=== PATIENT | male | born 1975 | race Caucasian/White ===

== ENCOUNTER 2024-11-04 14:57 | Emergency (ER) | payer BC, SELFPAY ==
[2024-11-04 14:58] VITALS: BMI 29.1
[2024-11-04 15:12] VITALS: BP 154/96; PULSE 89; RESP 18; TEMP 36.8; O2SAT 96
--- NOTE | 2024-11-04 15:20 | EDNOTE_ITS ---
<Statement entered by Fina Yoon MD - 11/05/24 14:27> As co-signing physician, I was present and available for consult prn. I concur with the plan and care as documented by the midlevel provider. ED Wound/Laceration-RME/HPI General Chief Complaint: Wound/Laceration Stated Complaint: WANTS TETANUS SHOT Time Seen by Provider: 11/04/24 14:59 Arrival date/time: 11/04/24 14:57 49-year-old male presents emergency department for complaint of laceration right hand fourth digit on the palmar aspect Limitations: no limitations Related Data Previous Rx's ?Medication ?Instructions ?Recorded cephalexin 500 mg capsule 500 mg PO BID 7 days #14 cap s 11/04/24 ibuprofen 800 mg tablet 800 mg PO TID PRN pain #30 t abs 11/04/24 Allergies Allergy/AdvReac Type Severity Reaction Status Date / Time NKA* Allergy Uncoded 02/14/13 07:34 Review of Systems Review of Systems Systems Reviewed: All systems reviewed, normal except as documented Constitutional Constitutional: Reports system reviewed and no additional complaints, except as documented, Denies fever(s) and Denies headache(s) Eyes Eyes: Reports system reviewed and no additional complaints, except as documented and Denies blurry vision ENT Ears, Nose, Mouth, and Throat: Reports system reviewed and no additional complaints, except as documented, Denies headache(s), Denies nasal congestion and Denies nasal discharge Cardiovascular Cardiovascular: Reports system reviewed and no additional complaints, except as documented, Denies chest pain and Denies dyspnea Respiratory Respiratory: Reports system reviewed and no additional complaints, except as documented, Denies chest congestion, Denies cough and Denies dyspnea Gastrointestinal Gastrointestinal: Reports system reviewed and no additional complaints, except as documented and Denies abdominal pain Integumentary/Breasts Skin/Breast: Reports system reviewed and no additional complaints, except as documented, Denies rash and Reports wounds (Laceration right hand fourth digit) Neurologic Neurologic: Reports system reviewed and no additional complaints, except as documented, Reports as per HPI and Denies headache(s) Past Medical History Social History SMOKING STATUS: Current some day smoker ED Exam General Limitations: Present no limitations General appearance: Present alert and in no apparent distress Head Head exam: Present atraumatic Eye Eye exam: Present normal appearance, PERRL and EOMI ENT ENT exam: Present normal exam, normal oropharynx and mucous membranes moist Neck Neck exam: Present normal inspection, full ROM and trachea midline Chest Chest inspection: Present normal inspection and symmetric chest wall rise Respiratory Respiratory exam: Present normal lung sounds bilaterally Cardiovascular Cardiovascular exam: Present regular rate, normal rhythm and normal heart sounds Abdominal Exam Abdominal exam: Present soft and normal bowel sounds Extremities Exam Extremities exam: Present normal inspection and full ROM Back Exam Back exam: Present normal inspection and full ROM Neurological Exam Neurological exam: Present alert, oriented X3, CN II-XII intact, normal gait and reflexes normal; Absent motor sensory deficit Psychiatric Psychiatric exam: Present normal affect and normal mood Skin Skin exam: Present warm, dry, normal color and other (Laceration right hand fourth digit) Course Quality Measures none Orders Category Date Time Status TET,DIP/PERT AC (Adult)-Tdap [Boostrix Adult (Tdap) Med 11/04/24 15:16 Discontinued Vacc] 0.5 ml IMI .ONCE ONE Vital Signs Vital signs: Vital Signs Temperature 98.3 F 11/04/24 15:12 Pulse Rate 89 11/04/24 15:12 Respiratory Rate 18 11/04/24 15:12 Blood Pressure 154/96 H 11/04/24 15:12 Pulse Oximetry (%) 96 11/04/24 15:12 Oxygen Delivery Method Room Air 11/04/24 15:12 O2 saturation 96% on room air within normal limits Procedures -ED Laceration Laceration 1: Site: hand Side (If applicable): right Size (cm): 3 Description: irregular Depth: simple, single layer Local Anesthetic: lidocaine 1% Amount of anesthesia used (mL): 5 Pre-repair: irrigated extensively Skin layer closed with: nylon Size (cm): 5-0 Number of sutures: 5 Technique: simple, interrupted Wound / Laceration MDM Narrative MDM Narrative:: 49-year-old male presents emergency department for complaint of laceration right hand fourth digit on the palmar aspect Patient reports he cut his finger on a fannie fence wound irrigated copiously laceration repaired with 5 sutures wound is well-approximated with no active bleeding at time of discharge no evidence of tendon ligamentous injury Tetanus updated per patient request Patient discharged home in no distress to follow-up with primary care doctor in the next 24 to 48 hours and for any worsening symptoms to return to the ER immediately Patient instructed to have sutures moved in 10 days Patient data External records reviewed:: [facility] previous records Clinical information provided by:: patient Social determinants that could affect healthcare access:: none Patient has the following chronic illnesses:: None How is presenting disease/condition affected by chronic disease/condition?: no chronic disease Evaluation data The following diagnostics were reviewed and interpreted by me:: radiology exam(s) Lab and/or radiology exams considered but not ordered:: Radiology obtain Interpretation Summary: Reviewed by me Medications / Prescriptions Medications or Prescriptions considered but not ordered:: Given Medication administrations:: Medication Administration History Discontinued Medications Diphtheria/Tetanus/Acell Pertussis (Diphth,Pertuss(Acell),Tet Vac 0.5 Ml Syr- Adult) 0.5 ml IMi .ONCE ONE Stop: 11/04/24 15:17 Last Admin: 11/04/24 15:45 Dose: 0.5 ml Documented By: Given Consultations Consultation(s) initiated? (list below): No Diagnosis Wound Differential Diagnosis: laceration Most likely diagnosis given after review of the tests above:: Laceration Admission Indicated Admission indicated?: not indicated Admission Request Was there a request for admission?: No Disposition Plan Disposition Plan: Discharge Discharge Attestation Discharge Attestation: The patient and all family members were given an opportunity to ask questions and understood the discharge instructions. Discharge instructions specifically effects, indications for sooner follow up or return to the emergency department, and the expected course of current diagnosis. Patient condition: Stable Discharge Plan Plan Patient Disposition: HOME (Self Care) Disposition Comment: Stable Prescriptions/Referrals Prescriptions/Med Rec: New ibuprofen 800 mg tablet 800 mg PO TID PRN (Reason: pain) Qty: 30 0RF cephalexin 500 mg capsule 500 mg PO BID 7 Days Qty: 14 0RF Problem List Clinical Impression: Laceration of finger of right hand Patient/Caregiver Discharge Instructions Education Materials: ED Scar Tips to Minimize Additional Instructions: Please follow up with your primary care doctor in the next 24-48hrs for any worsening symptoms return here immediately Print Language: Nigerien Stand Alone Forms: Louise Award Info., Patient Portal Info Letter Vaccines Vaccines Given During Stay: TDaP PA/DOCTOR OF NATUROPATHIC MEDICINE Supervising Physician PA/DOCTOR OF NATUROPATHIC MEDICINE Supervising Physician: Dr. Yoon
[2024-11-04] MEDS: DIPHTH,PERTUSS(ACELL),TET VAC 0.5 ML SYR- ADULT IMi (15:45)
== END 2024-11-04 15:40 | disposition home or self-care (01) ==
LOC: SERX 16:00
PROVIDERS: Emergency Provider Emergency Medicine
DX: S61.214A Laceration without foreign body of right ring finger without damage to nail, initial encounter (principal); W45.8XXA Other foreign body or object entering through skin, initial encounter; Z23 Encounter for immunization
CPT/HCPCS: 12002; 90471; 90715; 99283

== ENCOUNTER 2025-06-28 21:08 | Observation (INO) | payer BC, SELFPAY ==
[2025-06-28] VITALS (7 sets, daily range): BP systolic 141–171; BP diastolic 99–137; PULSE 102–120; RESP 13–22; TEMP 37.1–38.2; O2SAT 92–97; BMI 29.5
--- NOTE | 2025-06-28 21:11 | EKG_ITS ---
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
--- NOTE | 2025-06-28 21:44 | PD.EDRME ---
Rapid Medical Screening Exam RME Arrival date/time: 06/28/25 21:08 50M with history of asthma presents to ED with several days of cough, fevers/chills, and SOB. Patient went to clinic and was given some prednisone, amoxicillin (without any testing), and some inhalers. Chief Complaint: Shortness of Breath/Dyspnea Time Seen by Provider: 06/28/25 21:46 Vital signs: Vital Signs Temperature 99 F 06/28/25 21:31 Pulse Rate 120 H 06/28/25 21:31 Respiratory Rate 22 H 06/28/25 21:31 Blood Pressure 143/99 H 06/28/25 21:31 Pulse Oximetry (%) 92 L 06/28/25 21:31 Oxygen Delivery Method Room Air 06/28/25 21:31 Exam: Some wheezing in lungs. Clinical Impression: asthma exacerbation vs URI vs CAP vs pleural effusion vs CHF vs PE
--- NOTE | 2025-06-28 21:47 | XR_ITS ---
EXAMINATION: PA chest single view TECHNIQUE: Upright PA chest single view Date and time: June 28, 2025, 2144 hours INDICATIONS: Coughing fever chills this week FINDINGS: Normal heart size Lungs are clear. Osseous structures are intact IMPRESSION: No active disease
[2025-06-28 22:05] LABS: Lactate (Lactic Acid) 3.8 mMol/L (0.4-2.0)
[2025-06-28 22:08] LABS: Basophils # (Auto) 0.1 Thou/mm3 (0.0-0.2); Basophils % (Auto) 1 % (0-2.5); Eosinophils # (Auto) 0.2 Thou/mm3 (0.0-0.5); Eosinophils % (Auto) 1 % (0-10); Hematocrit 43.8 % (41.0-53.0); Hemoglobin 15.5 g/dL (13.5-16.0); Immature Granulocytes Auto 0.05 Thou/mm3 (0.00-0.00); Lymphocytes # (Auto) 0.9 Thou/mm3 (1.0-4.8); Lymphocytes % (Auto) 7 % (10-50); Mean Corpuscular HGB Conc 35.4 g/dl (31.0-37.0); Mean Corpuscular Hemoglobin 29.4 pg (25.0-35.0); Mean Corpuscular Volume 83 fL (80-100); Monocytes # (Auto) 0.6 Thou/mm3 (0.0-0.8); Monocytes % (Auto) 4 % (0-12); Neutrophils # (Auto) 11.8 Thou/mm3 (1.8-7.7); Neutrophils % (Auto) 87 % (37-80); Nucleated Red Blood Cell # 0.00 Thou/mm3 (0.00-0.00); Nucleated Red Blood Cell % 0 /100 WBC (0); Platelet Count 263 Thou/mm3 (140-440); RDW Standard Deviation 38.6 fL (35.1-43.9); Red Blood Count 5.28 Miln/mm3 (4.50-5.90); White Blood Count 13.6 Thou/mm3 (3.8-10.6)
[2025-06-28] MEDS: LEVALBUTEROL RT 1.25 MG/0.5 ML NEBU 5 MG INH (22:10)
[2025-06-28] MEDS: IPRATROPIUM RT 0.5 MG/ 2.5 ML NEBU 1 MG INH (22:10)
--- NOTE | 2025-06-28 22:19 | EDNOTE_ITS ---
ED SOB =RME/HPI General Chief Complaint: Shortness of Breath/Dyspnea Stated Complaint: SOB, KIM, FEVER Time Seen by Provider: 06/28/25 21:46 Arrival date/time: 06/28/25 21:08 RME / HPI RME / HPI Narrative: 06/28/25 21:08 50M with history of asthma presents to ED with several days of cough, fevers/chills, and SOB. Patient went to clinic and was given some prednisone, amoxicillin (without any testing), and some inhalers. DR. MARIANO MAIN ED EVALUATION: 50 y/o male with Hx of Asthma and Marijuana use presents to ED c/o shortness of breath, cough, fever, diarrhea, and vomiting x 1 day. Patient does not have an inhaler at home. Patient was seen at around 4:30 PM and received a breathing treatment with minimal improvement. He was prescribed a rescue inhaler, but still describes symptoms as breathing through a straw . Denies Hx of PNA but has been hospitalized for Asthma exacerbation in the past. Denies any recent travel outside of the country, but does admit to recent sick contacts. Denies any other medical history, medication use, or allergies to medications. Denies supplemental oxygen at home. Exam: Some wheezing in lungs. Impression: asthma exacerbation vs URI vs CAP vs pleural effusion vs CHF vs PE Related Data Previous Rx's ?Medication ?Instructions ?Recorded ibuprofen 800 mg tablet 800 mg PO TID PRN pain #30 t abs 11/04/24 Allergies Allergy/AdvReac Type Severity Reaction Status Date / Time No Known Allergies Allergy Verified 06/28/25 21:09 Review of Systems Review of Systems Systems Reviewed: All systems reviewed, normal except as documented Past Medical History Past Medical History RESPIRATORY: Positive Respiratory Disorders and Asthma PSYCHO/SOCIAL: Positive Recreational Drug Use Social History SMOKING STATUS: Current some day smoker SUBSTANCE USE: marijuana ED Exam Narrative Physical exam: GEN. APPEARANCE: The patient is alert awake oriented X-3 in no distress, lying down comfortably, does not look ill/toxic. Patient has good eye contact. Patient is cooperative. VITALS: All vitals were reviewed and the pulse ox is 97% on 9L/min via oxygen mask which is normal according to my interpretation. HEENT: Normocephalic, atraumatic. Pupils are equal and reactive. Oral mucosa is moist. Patent Nares NECK: Supple, nontender, no thyromegaly, no meningismus, no JVD CHEST: Symmetrical, atraumatic, and with equal expansion , Nontender on palpation no deformity and no crepitus. CARDIOVASCULAR: Heart regular rhythm no murmur or gallop rub or extra beats. LUNGS: Expiratory wheezes posterior and anteriorly with symmetrical chest rise. Dyspneic. No intercostal subcostal retraction. No rales and no rhonchi. ABDOMEN: Soft, flat, nontender to palpation, no guarding or rebound tenderness. There are no abnormal masses palpated. Active and normal bowel sounds. EXTREMITIES: Nontender. No lower extremity edema. No cyanosis. Patient is able to move all 4 extremities well, with full ROM and good CSM. SKIN: Warm and dry, no jaundice or rashes noted. MUSCULOSKELETAL: No lumbar or midline bony tenderness. There is no CVA tenderness. No paraspinal muscle spasm or tenderness. NEURO: Patient is THOMAS x 4, Cranial nerves II through XII grossly intact. There is no focal neurologic deficits noted. 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 PSYCHIATRIC: Patient is in normal mood and affect. Course Course Course Narrative: 2223: Sepsis alert initiated. Orders made at this time are congruent with ED Adult Sepsis Order List. Re-evaluation is to be completed. Quality Measures Current suspected stage: sepsis Possible source: pulmonary Blood cultures ordered: yes Antibiotic ordered: Yes Pertinent labs: 06/28/25 21:56 Lactic Acid 3.8 H mMol/L (0.4-2.0) Procalcitonin < 0.04 ng/ml (0.0-0.49) sepsis Orders Category Date Time Status Patient Condition Routine Admission 06/28/25 23:[address] in Observation Status Routine Admission 06/29/25 00:01 Active Bedside Blood Glucose NOW Care 06/28/25 22:23 Active Bedside COVID-19 Antigen Test NOW Care 06/28/25 21:43 Active Bedside COVID-19 Antigen Test NOW Care 06/28/25 22:39 Active Bedside Influenza A&B Antigen Test NOW Care 06/28/25 21:43 Completed Bedside Influenza A&B Antigen Test NOW Care 06/28/25 22:39 Completed Product Safety Administrator Q4H START 00 Care 06/28/25 22:23 Active Continuous Pulse Oximetry NOW Care 06/28/25 23:59 Active EKG (ED ONLY) *Do not use* NOW Care 06/28/25 21:11 Completed Insert IV NOW Care 06/28/25 22:23 Active Miscellaneous Nursing Order NOW Care 06/28/25 23:59 Active Notify provider NEEDED Care 06/28/25 23:59 Active Strict Intake and Output Routine Care 06/28/25 22:23 Ordered Diet Regular Diet 06/29/25 Breakfast Active EKG (ED Only) Stat Exams 06/28/25 21:11 Draft XR chest 1V portable Stat Exams 06/28/25 21:47 Completed BNP [B-Type Natriuretic Peptide] Stat Lab 06/28/25 21:56 Completed Blood Culture (Lab) Stat Lab 06/28/25 22:42 Received CBC Stat Lab 06/28/25 21:56 Completed CMP [Comprehensive Metabolic Panel] Stat Lab 06/28/25 21:56 Completed Lactate (Lactic Acid) Routine Lab 06/29/25 00:00 Ordered Lactate (Lactic Acid) Stat Lab 06/28/25 21:56 Results Procalcitonin Stat Lab 06/28/25 21:56 Completed Troponin I Stat Lab 06/28/25 21:56 Completed UA, C/S IF [Urinalysis, C/S if Indicated] Stat Lab 06/28/25 23:36 Completed Urine Culture Stat Lab 06/28/25 23:39 Received Acetaminophen Tab [Tylenol Tab] Med 06/28/25 23:25 Discontinued 650 mg PO X1 ONE Azithromycin Inj [Zithromax Inj] 500 mg Med 06/28/25 22:39 Discontinued Sodium Chloride 0.9% 250 ml [Ns] 250 ml IV STAT Ipratropium Onley Rt Surekha [Atrovent Rt Surekha] Med 06/28/25 21:43 Discontinued 1 mg INH X1 ONE Levalbuterol Rt [Xopenex Rt Surekha] Med 06/28/25 22:07 Discontinued 0.63 mg INH .STK-MED ONE Levalbuterol Rt [Xopenex Rt Surekha] Med 06/28/25 21:43 Discontinued 5 mg INH X1 ONE Ringers Lactated 1000 ml [Lactated Ringers] 1,000 ml Med 06/28/25 22:23 Discontinued IV 999 mls/hr Sodium Chloride Rt Surekha 0.9% [NS Rt Surekha 0.9%] Med 06/28/25 21:43 Active 3 ml INH PRN PRN cefTRIAXone/D5w 1gm IV premix [Rocephin/D5w 1gm IV Med 06/28/25 22:23 Discontinued premix] 1 gm in 50 ml IV STAT dexAMETHasone INJ [Decadron Inj] Med 06/28/25 21:43 Discontinued 10 mg PO X1 ONE Code Status Routine Oth 06/28/25 23:59 Ordered EKG (RT) Stat RT 06/28/25 22:23 Ordered Oxygen Delivery NOW RT 06/28/25 22:23 Active Vital Signs Vital signs: Vital Signs Temperature 99 F 06/28/25 21:31 Pulse Rate 120 H 06/28/25 21:31 Respiratory Rate 22 H 06/28/25 21:31 Blood Pressure 143/99 H 06/28/25 21:31 Pulse Oximetry (%) 92 L 06/28/25 21:31 Oxygen Delivery Method Room Air 06/28/25 21:31 Shortness of Breath / Dyspnea MDM Narrative MDM Narrative:: Scribe Attestation: Lynda Robles am scribing for and in the presence of Dr. Mariano. Provider Notation: Although this document has been carefully reviewed, there may still be some phonetic and other typographical errors. These errors are purely grammatical due to imperfections in the software program and should not be construed in any way to compromise the substance of the patient's medical care during this visit. Patient is a 50-year-old male with medical history notable for asthma is in the emergency room with concerns for cough, fevers chills and shortness of breath. Patient has been taking antibiotics amoxicillin and has been using inhaler at home despite this continues to not feel well. Vital signs and exam as listed. 10M with history of asthma presents to ED with several days of cough, fevers/chills, and SOB. Prior provider evaluated patient. Ordered labs Labs with evidence of leukocytosis 13.6, left shift of 87%, platelets and hemoglobin normal. Lactic acid is 3.8. Chest x-ray with focal consolidation in the upper lung field on the right concerning for pneumonia. Will provide fluid resuscitation antibiotics. EKG performed today at 2135 interpreted by me, notable for sinus rhythm, heart rate 121. Patient presented tachycardic, tachypneic, 92% on room air, concern the patient may be septic. Will order sepsis alert. Patient data External records reviewed:: [facility] previous records (Reviewed prior ED records from 11/04/24. Patient was seen for Laceration of finger of right hand.) Clinical information provided by:: patient Social determinants that could affect healthcare access:: substance use (Marijuana) Patient has the following chronic illnesses:: Asthma How is presenting disease/condition affected by chronic disease/condition?: exacerbated by Evaluation data The following diagnostics were reviewed and interpreted by me:: lab results, radiology exam(s) and EKG tracing(s) (EKG done at 21:35, 121 bpm, normal intervals, non-specific T-wave changes, not a cardiac alert. - Interpreted by Dr. Jessica Mariano.) Lab and/or radiology exams considered but not ordered:: None Interpretation Summary: RADIOLOGY Chest X-Ray: FINDINGS: Normal heart size Lungs are clear. Osseous structures are intact IMPRESSION: No active disease Medications / Prescriptions Medications or Prescriptions considered but not ordered:: None Medication administrations:: Medication Administration History Acetaminophen (Acetaminophen 325 Mg Tablet) 650 mg PO Q6H PRN PRN Reason: Fever >100.4 or pain Stop: 07/29/25 00:21 Albuterol/Ipratropium (Albuterol/Ipratropium (Duoneb) Rt Surekha 3 Ml Nebu) 3 ml INH Q2HR PRN PRN Reason: SHORTNESS OF BREATH OR WHEEZE Stop: 07/29/25 00:03 Albuterol/Ipratropium (Albuterol/Ipratropium (Duoneb) Rt Surekha 3 Ml Nebu) 3 ml I NH Q4HRRT LUDIN Stop: 07/29/25 02:59 Enoxaparin Sodium (Enoxaparin Sod Inj 40 Mg/0.4 Ml Syringe) 40 mg SC QDAY LUDIN Stop: 07/13/25 08:59 Ceftriaxone Sodium/Dextrose (Rocephin/D5w 1gm Iv Premix) 1 gm in 50 mls @ 100 mls/hr IV QDAY LUDIN Stop: 07/06/25 08:59 Azithromycin 500 mg/ Sodium (Chloride) 250 mls @ 250 mls/hr IV QDAY LUDIN Stop: 06/30/25 09:59 Ondansetron HCl (Ondansetron Inj 2 Mg/Ml Inj 2 Ml) 4 mg IVP Q6H PRN; Protocol PRN Reason: NAUSEA OR VOMITING Stop: 07/29/25 00:21 Prednisone (Prednisone 20 Mg Tablet) 40 mg PO QDAY LUDIN Stop: 07/01/25 08:59 Prednisone (Prednisone 20 Mg Tablet) 20 mg PO QDAY LUDIN Stop: 07/04/25 08:59 Sodium Chloride (Sodium Chloride Rt Surekha 0.9% 3 Ml Nebu) 3 ml INH PRN PRN PRN Reason: SOLN Stop: 07/28/25 21:42 Discontinued Medications Acetaminophen (Acetaminophen 325 Mg Tablet) 650 mg PO X1 ONE Stop: 06/28/25 23:26 Last Admin: 06/28/25 23:46 Dose: 650 mg Documented By: SKYLAR Dexamethasone Sodium Phosphate (Dexamethasone Sod Phos Inj 10 Mg/Ml Vial) 10 mg PO X1 ONE Stop: 06/28/25 21:44 Last Admin: 06/28/25 22:13 Dose: 10 mg Documented By: VASU Comments: PO Ceftriaxone Sodium/Dextrose (Rocephin/D5w 1gm Iv Premix) 1 gm in 50 mls @ 100 mls/hr IV STAT STA Stop: 06/28/25 22:52 Last Infusion: 06/28/25 23:33 Dose: Infused Documented By: Admin: 06/28/25 22:52 Dose: 100 mls/hr Documented By: SKYLAR Lactated Ringer's (Lactated Ringers) 1,000 mls @ 999 mls/hr IV .Q1H1M ONE Stop: 06/28/25 23:23 Last Infusion: 06/28/25 22:51 Dose: 0 mls/hr Documented By: Admin: 06/28/25 22:43 Dose: 999 mls/hr Documented By: SKYLAR Azithromycin 500 mg/ Sodium (Chloride) 250 mls @ 250 mls/hr IV STAT STA Stop: 06/28/25 23:38 Last Admin: 06/28/25 23:46 Dose: 250 mls/hr Documented By: SKYLAR Ipratropium Onley (Ipratropium Rt 0.5 Mg/ 2.5 Ml Nebu) 1 mg INH X1 ONE Stop: 06/28/25 21:44 Last Admin: 06/28/25 22:10 Dose: 1 mg Documented By: CG Levalbuterol HCl (Levalbuterol Rt 1.25 Mg/0.5 Ml Nebu) 5 mg INH X1 ONE Stop: 06/28/25 21:44 Last Admin: 06/28/25 22:10 Dose: 5 mg Documented By: CG Levalbuterol HCl (Levalbuterol Rt 0.63 Mg/3 Ml Nebu) Confirm Administered Dose 0.63 mg INH .STK-MED ONE Stop: 06/28/25 22:08 Last Admin: 06/28/25 22:17 Dose: Not Given Documented By: SKYLAR Non-Admin Reason: Duplicate Medication on eMAR See above if any Consultations Consultation(s) initiated? (list below): Yes Consultation #1 (Physician, Specialty, Details): Discussed with Dr. Lacy for admission. Reviewed the patient?s HPI, PMHx, lab and/or radiology results. Discussed treatment plan. Will consult an admission to the hospitalist. Time: 22:40 Diagnosis Shortness of Breath Differential Diagnosis: congestive heart failure, community acquired pneumonia, asthma with exacerbation and pulmonary embolism Most likely diagnosis given after review of the tests above:: Sepsis, PNA, Hypoxic Respiratory Failure Admission Indicated Admission indicated?: indicated Explain why admission is indicated or not indicated:: Sepsis, PNA, Hypoxic Respiratory Failure Admission Request Was there a request for admission?: Yes Admission Attestation Admission request attestation: Discussed case with [] from Hospitalist service regarding admission. Discussed patients ED course, exam findings, labs, and radiology results. The Hospitalist [agrees,declines] to accept the patient for admission. Disposition Plan Disposition Plan: Admit Critical Care Time Critical Care Time Critical Care Time: Yes Total Critical Care Time (min.): 35 Attestation: The high probability of sudden, clinically significant deterioration in the patient?s condition required the highest level of my preparedness to intervene urgently. The services I provided to this patient were to treat and/or prevent clinically significant deterioration. Services included the following: chart data review, reviewing nursing notes and/or old charts, documentation time, sourcing consultant collaboration regarding findings and treatment options, medication orders and management, direct patient care, vital sign assessments and ordering, interpreting and reviewing diagnostic studies and lab tests. Aggregate critical care time includes only time during which I was engaged in work directly related to the patient?s care, as described above, whether at bedside or elsewhere in the Emergency Department. It did not include time spent performing other reported procedures or the services of residents, students, nurses or physician assistants. Discharge Plan Plan Patient Disposition: Admit Acute Care w/in Hospital Problem List Clinical Impression: Sepsis, Pneumonia, Hypoxic respiratory failure
[2025-06-28 22:30] LABS: B-Type Natriuretic Peptide < 20 pg/mL (0-100)
[2025-06-28 22:38] LABS: Alanine Aminotransferase 18 U/L (10-49); Albumin, Serum 4.9 gm/dL (3.5-5.0); Albumin/Globulin Ratio 1.4 (1.2-2.2); Alkaline Phosphatase 75 U/L (46-116); Anion Gap 13 (7-16); Aspartate Amino Transferase 19 U/L (0-34); BUN/Creatinine Ratio 10 Ratio (12-20); Bilirubin,Total 0.5 mg/dL (0.3-1.2); Blood Urea Nitrogen 10 mg/dL (9-23); Calcium 10.2 mg/dL (8.3-10.6); Calcium (Corrected) 10.2 mg/dL (8.5-10.1); Carbon Dioxide 24.7 mMol/L (20.0-31.0); Chloride 102 mMol/L (98-107); Creatinine (Component) 1.0 mg/dL (0.6-1.3); Estimated Creatinine Clearance 110.0 mL/min (>60); Globulin 3.4 gm/dL (2.3-3.5); Glucose 148 mg/dL (74-106); Osmolality,Calculated 281 (275-295); Potassium 3.6 mMol/L (3.4-5.1); Procalcitonin < 0.04 ng/ml (0.0-0.49); Sodium 140 mMol/L (136-145); Total Protein 8.3 gm/dL (5.7-8.2); Troponin I < 0.020 ng/mL (0.0-0.045); eGFR > 60 See Note
[2025-06-28] MEDS: RINGERS LACTATED 1000 ML 1,000 ML 999 ML IV (22:43)
[2025-06-28] MEDS: cefTRIAXone/D5w 1gm IV premix 1 GM/50 ML BAG IV (22:52)
[2025-06-28 23:46] LABS: Collection Type, Urine Clean Catch; Squamous Epithelial Cell,Urine 0 /hpf (0-5)
[2025-06-28] MEDS: ACETAMINOPHEN 325 MG TABLET 650 MG PO (23:46)
[2025-06-28] MEDS: AZITHROMYCIN INJ 500 MG in SODIUM CHLORIDE 0.9% 250 ML 250 ML 250 MG IV (23:46)
[2025-06-28 23:57] LABS: Bilirubin,Urine Negative (Negative); Blood,Urine Negative (Negative); Clarity,Urine Clear (Clear/Hazy); Color,Urine Lt-Yellow (Lt Yel-Yel); Culture Indicated,Urine Not Indicated; Glucose, Urine Negative (Negative); Hyaline Casts,Urine < 1 /hpf (0-1); Ketones,Urine Negative (Negative); Leukocyte Esterase,Urine Negative (Negative); Nitrite,Urine Negative (Negative); PH,Urine 6.0 (5.0-7.0); Protein,Urine Negative (Neg - Trace); RBC,Urine < 1 /hpf (0-3); Specific Gravity,Urine 1.019 (1.001-1.035); Urobilinogen,Urine Negative mg/dL (0.0-1.0); WBC,Urine 1 /hpf (0-5)
[2025-06-29] VITALS (11 sets, daily range): BP systolic 142–154; BP diastolic 88–94; PULSE 80–108; RESP 15–98; TEMP 36.2–37.2; O2SAT 91–100; BMI 27.8
--- NOTE | 2025-06-29 00:34 | ESHP_ITS ---
<Statement entered by Abel Woodson MD - 06/29/25 05:14> A 50-year-old male with significant past medical history of asthma and last use of inhaler is an year ago presented to the hospital with chief complaints of shortness of breath, vomitings, diarrheal episodes since 1 day. Reported that he had history of severe cough since 1 day following which he noted to have vomitings and diarrheal episodes, likely posttussive emesis. Reported on the day of admission he had severe shortness of breath for which went to the urgent care and got a nebulization treatment, followed by which he was discharged on albuterol inhaler and oral antibiotic, steroid. Despite taking 3 puffs of albuterol on the same day, noted to have worsening shortness of breath for which he came to the ED. also reported that he has sick contacts at home. Vitals at the time of admission are significant for blood pressure 143/99 mmHg, pulse rate 120 bpm, Temp 100.7, respiratory rate 22/min, SpO2 92% with room air. On physical examination, noted to have diffuse bilateral wheeze. Labs at the time of admission were significant for WBC 13.6, lactate 3.8, procalcitonin less than 0.04. Urinalysis seems unremarkable. Tested negative for covid, influenza. Chest x-ray did not show any significant abnormality. EKG showed sinus tachycardia. Was given a liter of bolus in view of elevated lactate. Started on ceftriaxone and azithromycin, nebulizations, prednisone. Repeat lactate downtrended to 2.5 # Acute hypoxic respiratory failure 2/2 # Acute asthma exacerbation # Secondary to upper respiratory tract infection # Lactic acidosis, resolving I have personally seen and examined the patient, agree with residents assessment and plan Patient plan of care was discussed with the attending physician, Dr. Christy Woodson, PGY2 <Statement entered by Bhavik Harrison DO - 06/29/25 02:52> Patient was seen and examined by me. After the review of the clinical data, I agree that the patient will need an admission on observation status for acute hypoxic respiratory failure secondary to asthma exacerbation Plan of care discussed with patient and is in agreement. I Bhavik Harrison DO, attest that I was physically present for adkins portions of evaluation, examined the patient, reviewed labs and imaging, and discussed the plan of care and management with the IM residents team. I agree with the findings and plans documented by the resident. Documentation for date of: 06/29/25 HPI History of Present Illness Chief complaint: Shortness of breath History of present illness: This patient is a 50-year-old male with a history of asthma since childhood who presented to [facility] ED from home due to shortness of breath. Patient was admitted under observation for concern of acute hypoxic respiratory failure secondary to acute asthma exacerbation. The patient's symptoms started at around 0130 on 06/28. The patient woke up in the evening due to a cough with shortness of breath and had fevers/chills as well. According to the patient and his , the coughing did sound like a high-pitched wheezing cough. Since the patient's daughter recently felt ill from an upper respiratory tract infection, the family thought that the patient also had the same infection I did not seek any emergent medical care at that time. The patient does have a history of asthma since childhood, but he was never on any medications as a child and has been prescribed an albuterol inhaler that he has not used for several years, and so he did not renew it last year. The patient would go about his day with a continued cough until seeking care at an urgent care early in the afternoon on 06/28. The urgent care gave the patient a breathing treatment and prescribed the patient amoxicillin, albuterol inhaler, and prednisone for further outpatient management. The patient had about 45 minutes of relief with the breathing treatment, but was still noted to have a bit of a wheezing cough. After about 45 minutes, the patient started having return of his shortness of breath and increased cough, and so he started to use his albuterol inhaler which had little success in improving his symptoms. The patient stated that he only took 1 dose of his prescribed amoxicillin and prednisone, and because of his recurrent symptoms, along with a home pulse ox measuring and O2 saturation in the mid 80s, he decided to go to the ED for further care. The patient endorses fevers, chills, headache, cough, shortness of breath, vomiting (about 5-6 times today, however patient's does note that the patient vomits about once every week), and diarrhea (loose stools, low output). Patient denies abdominal pain and dysuria. ED course: Initial vitals significant for blood pressure of 143/99, heart rate 120, respiratory rate 22, and O2 saturation 92% on 9 L oxy mask. Patient would later have a fever of 100.7 ?F Initial labs significant for WBC of 13.6 with left shift, blood glucose 148, and lactic acid 3.8 Procalcitonin noted to be within normal limits Chest x-ray unremarkable Patient was given levalbuterol, ipratropium, dexamethasone, and 1 L LR in the ED On admission, patient was saturating 98% on 4 L oxy mask Past Surgical History: Left knee surgery (2000), jaw surgery (2008), vasectomy (2012) Current Medication(s): Pending med rec Allergies (w/ Reactions): NKDA Family History: Father had heart condition, stent placement, and an ablation (thought to be for A-fib) 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, 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) Alcohol Intake: Occasional drinker of several years Tobacco/Vape Use: Patient denies Other Drug Use: Patient smokes THC daily for about 25 years Recent Travel History: Patient denies Recent sick contact: Patient's daughter has upper respiratory infection Recent animal exposure: No recent changes, but patient does live in a 5 acre farm which has pigs, goats, chickens, geese, and pheasants to which he interacts with minimally (his primarily manages the animals) Review of Systems Review of Systems Systems Reviewed: All systems reviewed, normal except as documented Exam Vital Signs Temp Pulse Resp BP Pulse Ox O2 Del Method O2 Flow Rate 98.7 F 102 H 18 141/103 H 93 L Room Air 6 06/28/25 23:59 06/28/25 23:59 06/28/25 23:59 06/28/25 23:59 06/28/25 23:59 06/28/25 23:59 06/28/25 22:47 Narrative Exam Physical Exam: General: Alert, no acute distress. Skin: Warm, dry, intact. Head: Normocephalic, atraumatic. Eye: Normal conjunctiva, PERRL. Throat: Oral mucosa moist. No obvious lesions in oropharynx. Cardiovascular: Regular rate and rhythm, no murmur, +S1/S2. Respiratory: Significant expiratory wheeze bilaterally. No increased work of breathing. No crackles. Gastrointestinal: Soft, nontender, obese. No guarding or rebound tenderness. Extremities: No edema, no cyanosis, no clubbing. 2+ radial pulse bilaterally, 2+ pedal pulse bilaterally. Neuro: No focal deficits observed. Conversant, moving all extremities. No overt cerebellar signs/incoordination. Psychiatric: Cooperative, appropriate affect. Results: Labs 06/29/25 04:30 06/28/25 21:56 Labs: Short CBC 06/28/25 Range/Units 21:56 WBC 13.6 H (3.8-10.6) Thou/mm3 Hgb 15.5 (13.5-16.0) g/dL Hct 43.8 (41.0-53.0) % Plt Count 263 (140-440) Thou/mm3 BMP 06/28/25 21:56 Sodium 140 Potassium 3.6 Chloride 102 Carbon Dioxide 24.7 BUN 10 Creatinine 1.0 Glucose 148 H Calcium 10.2 Cardiac Enzymes 06/28/25 Range/Units 21:56 Troponin I < 0.020 (0.0-0.045) ng/mL Liver Function 06/28/25 Range/Units 21:56 Total Bilirubin 0.5 (0.3-1.2) mg/dL AST 19 (0-34) U/L ALT 18 (10-49) U/L Alkaline Phosphatase 75 (46-116) U/L Albumin 4.9 (3.5-5.0) gm/dL Urine 06/28/25 Range/Units 23:36 Urine Color Lt-Yellow (Lt Yel-Yel) Urine Clarity Clear (Clear/Hazy) Urine pH 6.0 (5.0-7.0) Ur Specific [place] 1.019 (1.001-1.035) Urine Protein Negative (Neg - Trace) Urine Glucose (UA) Negative (Negative) Quality Measures Quality Measures VTE prophylaxis and sepsis Current suspected stage: ruled out Possible source: pulmonary Blood cultures ordered: yes Antibiotic ordered: Yes Medications Home Medications and Allergies Allergies Allergy/AdvReac Type Severity Reaction Status Date / Time No Known Allergies Allergy Verified 06/28/25 21:09 Visit Medications Acetaminophen (Acetaminophen 325 Mg Tablet) 650 mg PO Q6H PRN PRN Reason: Fever >100.4 or pain Stop: 07/29/25 00:21 Albuterol/Ipratropium (Albuterol/Ipratropium (Duoneb) Rt Surekha 3 Ml Nebu) 3 ml INH Q2HR PRN PRN Reason: SHORTNESS OF BREATH OR WHEEZE Stop: 07/29/25 00:03 Albuterol/Ipratropium (Albuterol/Ipratropium (Duoneb) Rt Surekha 3 Ml Nebu) 3 ml INH Q4HRRT LUDIN Stop: 07/29/25 02:59 Enoxaparin Sodium (Enoxaparin Sod Inj 40 Mg/0.4 Ml Syringe) 40 mg SC QDAY LUDIN Stop: 07/13/25 08:59 Ceftriaxone Sodium/Dextrose (Rocephin/D5w 1gm Iv Premix) 1 gm in 50 mls @ 100 mls/hr IV QDAY LUDIN Stop: 07/06/25 08:59 Azithromycin 500 mg/ Sodium (Chloride) 250 mls @ 250 mls/hr IV QDAY LUDIN Stop: 06/30/25 09:59 Ondansetron HCl (Ondansetron Inj 2 Mg/Ml Inj 2 Ml) 4 mg IVP Q6H PRN; Protocol PRN Reason: NAUSEA OR VOMITING Stop: 07/29/25 00:21 Prednisone (Prednisone 20 Mg Tablet) 40 mg PO QDAY LUDIN Stop: 07/01/25 08:59 Prednisone (Prednisone 20 Mg Tablet) 20 mg PO QDAY LUDIN Stop: 07/04/25 08:59 Sodium Chloride (Sodium Chloride Rt Surekha 0.9% 3 Ml Nebu) 3 ml INH PRN PRN PRN Reason: SOLN Stop: 07/28/25 21:42 Discontinued Medications Acetaminophen (Acetaminophen 325 Mg Tablet) 650 mg PO X1 ONE Stop: 06/28/25 23:26 Last Admin: 06/28/25 23:46 Dose: 650 mg Dexamethasone Sodium Phosphate (Dexamethasone Sod Phos Inj 10 Mg/Ml Vial) 10 mg PO X1 ONE Stop: 06/28/25 21:44 Last Admin: 06/28/25 22:13 Dose: 10 mg Ceftriaxone Sodium/Dextrose (Rocephin/D5w 1gm Iv Premix) 1 gm in 50 mls @ 100 mls/hr IV STAT STA Stop: 06/28/25 22:52 Last Infusion: 06/28/25 23:33 Dose: Infused Lactated Ringer's (Lactated Ringers) 1,000 mls @ 999 mls/hr IV .Q1H1M ONE Stop: 06/28/25 23:23 Last Infusion: 06/28/25 22:51 Dose: 0 mls/hr Azithromycin 500 mg/ Sodium (Chloride) 250 mls @ 250 mls/hr IV STAT STA Stop: 06/28/25 23:38 Last Admin: 06/28/25 23:46 Dose: 250 mls/hr Ipratropium Flushing (Ipratropium Rt 0.5 Mg/ 2.5 Ml Nebu) 1 mg INH X1 ONE Stop: 06/28/25 21:44 Last Admin: 06/28/25 22:10 Dose: 1 mg Levalbuterol HCl (Levalbuterol Rt 1.25 Mg/0.5 Ml Nebu) 5 mg INH X1 ONE Stop: 06/28/25 21:44 Last Admin: 06/28/25 22:10 Dose: 5 mg Assessment & Plan Plan This patient is a 50-year-old male with a history of asthma since childhood who presented to [facility] ED from home due to shortness of breath. Patient was admitted under observation for concern of acute hypoxic respiratory failure secondary to acute asthma exacerbation. #Acute hypoxic respiratory failure 2/2 #Acute asthma exacerbation 2/2 #Upper respiratory tract infection #History of asthma Patient had acute onset of cough, shortness of breath, fevers, and chills that started at 0130 on 06/28. Patient is thought to have obtained upper respiratory tract infection from his daughter who lives with him. Patient does have a history of asthma, but has not needed to use his albuterol inhaler for several years and no longer has an active albuterol inhaler as a result. The patient's shortness of breath and cough did significantly improve with breathing treatment at an urgent care, however this only lasted 45 minutes. Patient has taken a dose of amoxicillin and prednisone and also use the albuterol inhaler prescribed to him at the urgent care without relief of his symptoms afterwards. Diagnostic: Chest x-ray on 06/28 was largely unremarkable Bedside influenza A/B and bedside COVID-19 testing negative Blood cultures collected on 06/28, pending Urine culture collected on 06/28, pending Treatment: Ceftriaxone 1 g daily (06/28?) Azithromycin 500 mg daily (06/28 - 06/30) Patient s/p dexamethasone 10 mg (on 06/28, 66.7 mg equivalent of prednisone), prednisone 40 mg for 1 day (06/29), followed by prednisone 20 mg for 3 days (06/30?07/03) to complete a 5-day course of steroids DuoNebs every 4 hours with additional every 2 hours as needed #Lactic acidosis Patient noted to have lactic acid of 3.2 on admission. Likely to have a secondary to hypoxemia given the patient's history of pulse oximetry reading in mid 80s at home. Also possibly secondary to dehydration given that the patient had multiple bouts of vomiting and increased stool output. Treatment: Trend lactic acid every 3 hours until within normal limits Manage underlying acute hypoxic respiratory failure as noted above Patient is status post 1 L of LR in ED #Hypertension, most likely primary Patient noted to have elevated blood pressure in ED. On admission, patient was noted to have blood pressure of 145/117. Patient does not note any history of hypertension, and blood pressure could be elevated due to recent shortness of breath. Treatment: Patient to follow-up outpatient If blood pressure continues to be significantly elevated consider starting patient on antihypertensive #Hyperlipidemia Patient noted to have elevated triglycerides, cholesterol, and LDL from lipid panel on 01/23/2021 and 04/24/2022. Patient is not on any medication for hyperlipidemia. Treatment: Lipid panel ordered, pending If lipid panel results LDL over 190, the patient should be started on maximally tolerated statin therapy as per ACC/AHA clinical practice guidelines Patient to follow-up outpatient #Hyperglycemia Patient noted to have blood glucose of 148 on admission. No prior history of diabetes. Treatment: Hemoglobin A1c ordered, pending Patient to follow-up outpatient DVT Prophylaxis: Lovenox GI Prophylaxis: N/A Bowel: N/A Diet: Regular Peters: N/A Lines: PIV Antibiotics: Ceftriaxone & Azithromycin Code Status: FULL Reason for Hospitalization: AHRF Other Barriers to Discharge: Blood cultures Patient plan of care was discussed with the senior resident Dr. Woodson (PGY-2) and attending physician Dr. Christy Nails, PGY1
[2025-06-29 01:03] LABS: Reflex Lactate? Y
[2025-06-29 01:29] LABS: Lactic Acid, 3 HR 2.5 mMol/L (0.4-2.0)
[2025-06-29] MEDS: RINGERS LACTATED 1000 ML 1,000 ML 999 ML IV (02:05)
[2025-06-29] MEDS: ALBUTEROL/IPRATROPIUM (Duoneb) RT SOL 3 ML NEBU INH ×3 (03:42→11:59)
[2025-06-29 04:59] LABS: Basophils # (Auto) 0.0 Thou/mm3 (0.0-0.2); Basophils % (Auto) 0 % (0-2.5); Eosinophils # (Auto) 0.0 Thou/mm3 (0.0-0.5); Eosinophils % (Auto) 0 % (0-10); Hematocrit 40.2 % (41.0-53.0); Hemoglobin 14.1 g/dL (13.5-16.0); Immature Granulocytes Auto 0.05 Thou/mm3 (0.00-0.00); Lymphocytes # (Auto) 0.8 Thou/mm3 (1.0-4.8); Lymphocytes % (Auto) 9 % (10-50); Mean Corpuscular HGB Conc 35.1 g/dl (31.0-37.0); Mean Corpuscular Hemoglobin 29.4 pg (25.0-35.0); Mean Corpuscular Volume 84 fL (80-100); Monocytes # (Auto) 0.1 Thou/mm3 (0.0-0.8); Monocytes % (Auto) 1 % (0-12); Neutrophils # (Auto) 7.5 Thou/mm3 (1.8-7.7); Neutrophils % (Auto) 89 % (37-80); Nucleated Red Blood Cell # 0.00 Thou/mm3 (0.00-0.00); Nucleated Red Blood Cell % 0 /100 WBC (0); Platelet Count 204 Thou/mm3 (140-440); RDW Standard Deviation 39.8 fL (35.1-43.9); Red Blood Count 4.79 Miln/mm3 (4.50-5.90); White Blood Count 8.4 Thou/mm3 (3.8-10.6)
[2025-06-29 05:20] LABS: Albumin, Serum 4.8 gm/dL (3.5-5.0); Anion Gap 13 (7-16); BUN/Creatinine Ratio 11 Ratio (12-20); Blood Urea Nitrogen 9 mg/dL (9-23); Calcium 9.4 mg/dL (8.3-10.6); Calcium (Corrected) 9.4 mg/dL (8.5-10.1); Carbon Dioxide 22.7 mMol/L (20.0-31.0); Cardiac Risk Estimate 5.4 RATIO (4.0-6.7); Chloride 108 mMol/L (98-107); Cholesterol 226 mg/dL (132-200); Creatinine (Component) 0.8 mg/dL (0.6-1.3); Estimated Creatinine Clearance 137.5 mL/min (>60); Glucose 167 mg/dL (74-106); HDL Cholesterol 42 mg/dL (40-60); LDL Cholesterol,Calculated 168 mg/dL (0-130); Magnesium 1.9 mg/dL (1.6-2.6); Osmolality,Calculated 289 (275-295); Phosphorous 1.9 mg/dL (2.4-5.1); Potassium 3.6 mMol/L (3.4-5.1); Sodium 144 mMol/L (136-145); Triglycerides 80 mg/dL (30-150); eGFR > 60 See Note
[2025-06-29 06:20] LABS: Lactate (Lactic Acid) 1.6 mMol/L (0.4-2.0)
[2025-06-29 06:34] LABS: Glucose Estimated Average 117 mg/dL (80-131); Hemoglobin A1C 5.7 % Hgb (4.8-6.0)
[2025-06-29] MEDS: cefTRIAXone/D5w 1gm IV premix 1 GM/50 ML BAG IV (08:30)
[2025-06-29] MEDS: ENOXAPARIN SOD INJ 40 MG/0.4 ML SYRINGE SC (08:30)
[2025-06-29] MEDS: Magnesium Sulfate 2 GM Ivpb 2 GM/50 ML BAG IV (10:36)
[2025-06-29] MEDS: LOSARTAN POTASSIUM 25 MG TABLET PO (10:36)
[2025-06-29 14:33] LABS: Cocci Serology, IgM Negative (Negative)
--- NOTE | 2025-06-29 15:31 | ESDS_ITS ---
<Statement entered by Devon Zee MD - 06/30/25 06:23> In summary: 50 year old male admitted for asthma exacerbation with resolution of symptoms overnight after breathing treatment. He has relatively controlled asthma but experiencd an exacerbation recently, likely from cold weather. Recommended continuing with steroid taper which were prescribed by his PCP, also restarted his inhalers and started medications for HTN and HLD. I?ve reviewed the note and agree with this assessment and plan, with the exceptions outlined above. I personally went over the labs, imaging, home medications, and prior records, and examined the patient. The case was also reviewed with the attending physician. Please note: this document was transcribed using voice recognition technology; minor inaccuracies may be present. Devon eZe DO PGY II Planned Discharge Date 06/29/25 DS: Providers Provider Date of admission: 06/29/25 00:01 Primary care physician: Physician Rockwell Primary/Family Admitting Provider: Bhavik Harrison DO Attending Provider on Admission: Bhavik Harrison DO Attending Provider on DC: Kartik Fritz MD Discharging Provider: Nikki Mckeon DO Anticipated date of discharge: 06/29/25 DS: Diagnosis Problem List Completed Was Problem List Reviewed/Reconciled?: Yes Hospital Course Hospital Course Hospital course: 50-year-old male with a history of asthma who presented to the emergency department with complaints of shortness of breath, vomiting, and diarrhea for the past day. His symptoms began with a severe cough and subsequent posttussive emesis, followed by progressive shortness of breath. Despite receiving nebulization and being discharged with an albuterol inhaler and oral antibiotics/steroids from urgent care, his condition worsened, and he sought further care at the ED. He also reported sick contacts at home with recent upper respiratory infection. On admission, the patient presented with tachycardia, hypertension, fever, and hypoxia (SpO2 92% on room air), along with diffuse bilateral wheezing on examination. Labs revealed a white blood cell count of 13.6, elevated lactate of 3.8, and normal procalcitonin. Chest x-ray was unremarkable, and tests for COVID-19 and influenza were negative. The patient was admitted acute hypoxic respiratory failure, likely secondary to an asthma exacerbation. He was started on ceftriaxone, azithromycin, and corticosteroids, with nebulization treatments and fluids to manage his symptoms. The patient was also noted to have hypertension, likely primary, and hyperlipidemia, for which further follow-up and potential treatment were planned. Blood glucose was elevated at 148, but no prior history of diabetes was noted, and an HbA1c was 5.7. Lactic acidosis resolved with fluid resuscitation. Patient's O2 sat was 98% on room air at the time of discharge. Patient is medically and physically stable for discharge. Diagnosis: #Acute hypoxic respiratory failure #Acute asthma exacerbation #Upper respiratory tract infection #History of asthma #Lactic acidosis #Hypertension #Hyperlipidemia #Hyperglycemia Discharge Plan: Follow up with primary care physician within 1 week of discharge Instructions have been explained to the patient with regards to their medications and how to take them. Patient was able to explain back to physician and nursing staff how to take their medications. Patient expressed understanding with instructions. New Medications: Lipitor 40mg everyday losartan 25mg everyday Advair inhaler (use 2 puff daily) Albuterol inhaler (use 1 puff up to 4 times daily as needed for shortness of breath or wheezing) Continue to take the rest of your medications as prescribed by your primary care physician. Patient has been explained that should any symptoms recur or worsen patient is instructed to return to the Emergency Department. --- Case discussed with my senior resident Dr. Zee. Case discussed with my attending Dr. Fritz. Nikki Mckeon DO PGY-1 Status at Discharge Overall status at discharge: patient is back to baseline Time Spent with Patient Time attestation: Total time spent providing and/or coordinating discharge services: 33 minutes Time spent: Greater than 30 minutes Exam Vital Signs Temp Pulse Resp BP Pulse Ox O2 Del Method O2 Flow Rate 97.6 F 108 H 22 H 142/92 H 98 Room Air 3 06/29/25 12:06/29/25 12:06/29/25 12:02 06/29/25 12:06/29/25 12:06/29/25 12:06/29/25 03:42 Narrative Exam Physical Exam: General: Alert, no acute distress. Skin: Warm, dry, intact. Head: Normocephalic, atraumatic. Eye: Normal conjunctiva, PERRL. Throat: Oral mucosa moist. No obvious lesions in oropharynx. Cardiovascular: Regular rate and rhythm, no murmur, +S1/S2. Respiratory: Mild expiratory wheeze bilaterally. No increased work of breathing. No crackles. Gastrointestinal: Soft, nontender, obese. No guarding or rebound tenderness. Extremities: No edema, no cyanosis, no clubbing. 2+ radial pulse bilaterally, 2+ pedal pulse bilaterally. Neuro: No focal deficits observed. Conversant, moving all extremities. No overt cerebellar signs/incoordination. Psychiatric: Cooperative, appropriate affect. Discharge Plan Plan Patient Disposition: HOME (Self Care) Care Plan Goals: Follow up with primary care physician within 1 week of discharge Instructions have been explained to the patient with regards to their medications and how to take them. Patient was able to explain back to physician and nursing staff how to take their medications. Patient expressed understanding with instructions. New Medications: Lipitor 40mg everyday losartan 25mg everyday Advair inhaler (use 2 puff daily) Albuterol inhaler (use 1 puff up to 4 times daily as needed for shortness of breath or wheezing) Continue to take the rest of your medications as prescribed by your primary care physician. Patient has been explained that should any symptoms recur or worsen patient is instructed to return to the Emergency Department. Prescriptions/Referrals Prescriptions/Med Rec: New losartan 25 mg Tablet 25 mg PO QDAY 30 Days Qty: 30 0RF atorvastatin [Lipitor] 40 mg tablet 40 mg PO QPM Qty: 30 0RF fluticasone propion-salmeterol [Advair HFA] 45-21 mcg/actuation HFA aerosol inhaler 2 puff inhalation BID Qty: 12 0RF albuterol sulfate [Ventolin HFA] 90 mcg/actuation HFA aerosol inhaler 1 inh inhalation QID PRN (Reason: shortness of breath or wheezing) Qty: 6.7 0RF Continued ibuprofen 800 mg tablet 800 mg PO TID PRN (Reason: pain) Qty: 30 0RF Referrals: No Primary/Family,Physician [Primary Care Provider] Patient/Caregiver Discharge Instructions Education Materials: Allergy Medicines: [id number], About Your Asthma Action Plan Print Language: Sinhala Stand Alone Forms: Louise Award Info., Patient Portal Info Letter, Work/Release Restrictions Discharge Order Discharge Orders: Discharge (Routine); Ordered 06/29/25 Ordered By: Jhonatan Escalante Quality Discharge Quality Measures VTE prophylaxis Attestestation Attestation I have seen and examined the patient. I was physically present for the adkins portions of the services provided including history, physical exam, diagnosis, treatment plans and orders. I agree with assessment and plan of care as documented by residents. Even though this this note was carefully revised there may still be minor errors in ruby software developer due to voice recognition software. Kartik Fritz MD
[2025-07-01 14:29] LABS: Cocci Serology, IgG Negative (Negative)
== END 2025-06-29 13:15 | disposition home or self-care (01) ==
LOC: SERX 22:56 → SERHOLD 06-29 00:31 → S3NX 06-29 05:20
PROVIDERS: Physician Assistant; Admitting Provider Internal Medicine; Emergency Provider Emergency Medicine; Visit Provider Student in an Organized Health Care Education/Training Program
DX: J45.901 Unspecified asthma with (acute) exacerbation (principal); J96.01 Acute respiratory failure with hypoxia; E87.20 Acidosis, unspecified; I10 Essential (primary) hypertension; E78.5 Hyperlipidemia, unspecified; J06.9 Acute upper respiratory infection, unspecified; R73.9 Hyperglycemia, unspecified
CPT/HCPCS: 36415; 71045; 80053; 80061; 80069; 81001; 83036; 83605; 83735; 83880; 84145; 84484; 85025; 86331; 86635; 87040; 87086; 87502; 87635; 93005; 94640; 94644; 96361; 96365; 96366; 96372; 99285; A9270; G0378; J0456; J0696; J1100; J1650; J3475; J7050; J7120; J7512; J7611